=== PATIENT | male | born 1985 | race Two or more races ===

== ENCOUNTER 2025-02-06 10:23 | Outpatient (OUT) | payer OTHER, SELFPAY ==
--- OUTSIDE RECORDS SUMMARY | 2025-02-06 10:33 | XMS_ITS | Clinical Summary ---
Author Organization [facility] Address [address] [place] [address] Care Team Providers Care Commercial Lease Administrator Name Role Phone Gary Edwards MD Primary Care Provider [phone] Allergies Active AllergyReactionsCriticalityNoted DateCommentsCodeineHives,GI intolerance High01/15/2014Hydrocodone-ZbglyapufqsllEvtolcd86/12/2025LatexHives,Rash,Unknown High02/22/2017PenicillinsHives,GI cupqcedcwdrXolr88/25/2014 Medications MedicationSigDispense QuantityRefillsLast FilledStart DateEnd DateStatus omeprazole (PriLOSEC) [address] capsule Take 40 mg by mouth in the morning. Take before meals. Do not crush or chew. Active atorvastatin (Lipitor) 20 MG tablet Take 20 mg by mouth DailyActive venlafaxine XR (Effexor XR) 150 MG 24 hr capsule Take 150 mg by mouth Daily Do not crush or chew.Active topiramate 50 MG tablet Take by mouthActive gabapentin (Neurontin) 300 MG capsule Take 300 mg by mouth in the morning and 300 mg in the evening and 300 mg before bedtime.Active calcitriol (Rocaltrol) 0.25 MCG capsule Take 0.25 mcg by mouth DailyActive fluticasone (Flonase) 50 MCG/ACT nasal spray Administer 1 spray into each nostril Daily Shake gently. Before first use, prime pump. After use, clean tip and replace cap.Active Social History Tobacco UseTypesPacks/DayYears UsedDateSmoking Tobacco: Every DayCigarettes Smokeless Tobacco: Never Tobacco Cessation:Ready to Q uit: Not Asked Alcohol UseStandard Drinks/WeekCommentsNot Currently0 (1 standard drink = 0.6 oz pure alcohol)Sex and Gender InformationValueDate RecordedSex Assigned at Not on fileLegal XpwLgdf6005/05/2022 7:32 PM EDTGender IdentityNot on fileSexual OrientationNot on file Last Filed Vital Signs Vital SignReadingTime TakenCommentsBlood Lnvxwrqe599/8907/13/2024 11:33 AM EDT Tmion602907/13/2024 11:33 AM EDTTemperature--Respiratory Rate--Oxygen Saturation-- Inhaled Oxygen Concentration--Nymoej40.9 kg (207 lb)07/13/2024 11:33 AM EDT Sgxwgb686.8 cm (5' 10 )07/13/2024 11:33 AM EDTBody Mass Index29.7007/13/2024 11:33 AM EDT Plan of Treatment Not on file Insurance Care Teams Team MemberRelationshipSpecialtyStart DateEnd Gary Edwards MD [address] [place] [address] PCP - GeneralFamily Medicine07/13/24
--- OUTSIDE RECORDS SUMMARY | 2025-02-06 10:33 | XMS_ITS | Clinical Summary ---
Author Organization [facility] Address [address] [place], [place] [id number] Care Team Providers Care Financial Services Professional Name Role Phone Bello Kimberlyramya Ruiz CNP Primary Care Provider [phone] Allergies Active AllergyReactionsCriticalityNoted SfhkSuolzfgtVwtqoptNacfcveyclh31/25/2014 Hydrocodone-OrzqrboyivesgGixsmwh72/12/9376HsjycEqcarFlyg04/02/2018Penicillins Cxtbfarqiiz67/25/2014 Medications MedicationSigDispense QuantityRefillsLast FilledStart DateEnd DateStatus ibuprofen (MOTRIN) 600 mg tablet Take 1 tablet by mouth every 6 hours as needed for Pain. 21 tablet Active acetaminophen (TYLENOL) 500 mg tablet Take 1 tablet by mouth every 8 hours as needed for Pain or Fever. 50 tablet Active albuterol HFA (PROVENTIL HFA, VENTOLIN HFA) 90 mcg/actuation inhaler Inhale 2 Puffs as instructed.Active cholecalciferol (VITAMIN D3) 1,000 unit tab tablet Take 1,000 Units by mouth.Active fexofenadine (ERNESTO) 180 mg tablet Take 180 mg by mouth.Active omeprazole (PRILOSEC) 20 mg capsule Take 20 mg by mouth.Active erythromycin (ROMYCIN) 5 mg/gram (0.5 %) ophthalmic ointment Use 1 application in both eyes daily at bedtime. 3.5 g 12/03/2022ctive venlafaxine ER (EFFEXOR XR) 150 mg 24 hr capsule 11/24/2022ctive topiramate (TOPAMAX) 50 mg tablet 11/24/2022ctive gabapentin (NEURONTIN) 300 mg capsule 11/24/2022ctive atorvastatin (LIPITOR) 20 mg tablet 11/24/2022ctive Active Problems ProblemNoted DateDiagnosed OkxpVadzxaufx08/09/2022Meibomian gland dysfunction (MGD) of upper and lower lids of both eyes05/11/2019Punctate keratitis, hlyiwxipg37/20/0978Vekpmi09/20/2020High cofqnvmgmnb85/20/2206Qdlrczy51/20/2020 Vitreous floaters of both eyes01/15/2015Blepharitis of both eyes01/15/2014 Resolved Problems ProblemNoted DateDiagnosed DateResolved DateLeft corneal /01/2022 12/03/2022Foreign body of conjunctiva, leftOther vitreous opacities - Both Eyes Family History Medical HistoryRelationCommentsNo Ocular DiseaseFatherNo Ocular DiseaseMother RelationStatusCommentsFatherMother Social History Tobacco UseTypesPacks/DayYears UsedDateSmoking Tobacco: NeverSmokeless Tobacco: NeverAlcohol UseStandard Drinks/WeekCommentsNo0 (1 standard drink = 0.6 oz pure alcohol)Area Deprivation IndexAnswerDate RecordedNational Score (1-100), lower number is lower ftht673912/07/2022State Score (1-10), lower number is lower risk7 12/07/2022ata from: https://www.neighborhoodatlas.medicine.[facility]/. Last address used for imruugbojna[address]12/07/2022Sex and Gender Information ValueDate RecordedSex Assigned at BirthNot on fileLegal OzuPxrv23/02/2012 8:27 AM ESTGender IdentityNot on fileSexual OrientationNot on file Last Filed Vital Signs Vital SignReadingTime TakenCommentsBlood Vgkfhbiz271/8408 5:41 PM EDT Fajdu7817 5:41 PM YYEKehywvhthvo73 ??C (98.6 ??F)09/24/2015 5:41 PM EDT Respiratory Siaj2093 5:41 PM EDTOxygen Wlethtwnke95%09/24/2015 5:41 PM EDTInhaled Oxygen Concentration--Sxpghq43.9 kg (185 lb)09/24/2015 1:09 PM EDT Scztmv536.8 cm (5' 10 )09/24/2015 1:09 PM EDTBody Mass Index26.54009/24/2015 1:09 PM EDT Plan of Treatment Health MaintenanceDue DateLast DoneCommentsHepatitis B Vaccine (2 of 3 - 3-dose series)/07/1999Anxiety Ekeiaupwy87/21/2005Depression Screening 2004HIV Ljsmxstpf30/21/2005Hepatitis C Idoyccqsy09/21/2005HPV Vaccine (1 - 3-dose SCDM series)2013Covid-19 Vaccine ( season)2024 Influenza Vaccine (#1), 12/19/2022, 12/12/2021, Additional history existsDTaP,Tdap,Td Vaccine (6 - Td or Tdap), 12/09/1993, 09/03/1992, Additional history existsLipid Pxhwmjugv88/24/2029 02/14/2024, 05/04/2021, 03/04/2020, Additional history exists Insurance [facility] Address: [address] [address] * Guarantor: Kike Posadas AAccount TypeRelation to PatientDate of BirthPhone Billing AddressWorkers YkpoCkqm71/21/[address] [address] Care Teams Team MemberRelationshipSpecialtyStart DateEnd Kimberly Monsalve, DUPLICATING MACHINE MECHANIC [address] [place] [address] PCP - GeneralInternal Medicine05/10/19
--- OUTSIDE RECORDS SUMMARY | 2025-02-06 10:34 | XMS_ITS | Clinical Summary ---
Author Organization [facility] Address [address] [place] [address] Care Team Providers Care Razor Grinder Name Role Phone Unavailable Primary Care Provider Unavailabl e Allergies Active AllergyReactionsCriticalityNoted NtnpDtvhrzbaCjsimzuEckwfKeed63/28/2016 VzkwyHgfwjNvsk90/20/3240XbvtxnyfrvpLwmjqBska25/28/2016 Medications MedicationSigDispense QuantityRefillsLast FilledStart DateEnd DateStatus gabapentin (NEURONTIN) 300 MG capsule Take 300 mg by mouth daily as needed .Active cyanocobalamin (B-12) 1000 MCG tablet Take 1,000 mcg by mouth daily.Active fexofenadine (ERNESTO) 180 MG tablet Take 180 mg by mouth daily as needed .Active VENTOLIN HFA 90 mcg/actuation inhaler Inhale 2 puffs every 4 (four) hours as needed for wheezing or shortness of breath .Active omeprazole (PRILOSEC) 40 MG capsule Take 40 mg by mouth daily.Active fluticasone (FLONASE ALLERGY RELIEF) 50 mcg/actuation nasal spray Instill 2 sprays into each nostril daily.Active cholecalciferol, vitamin D3, 1,000 unit tablet Take 1,000 Units by mouth daily .Active Active Problems ProblemNoted DateDiagnosed MmviDsqidexczd51/27/2018 Assessment & Plan (01/17/2018 10:10 AM EST): I'm concerned that he may have a PE but he states that he is not able to afford any tests today dueto having no insurance. I have advised him that PEs can be deadly and that if his symptoms worsen, he needs to go to the ED immediately. He verbalized understanding. Mild intermittent fyzbyx8801/17/2018 Assessment & Plan (01/17/2018 10:12 AM EST): His chest pain is pleuritic in nature and is not associated with nausea/vomiting; it does not radiate to his neck or arms - I do not believe it is cardiac related. His shortness of breath may be due to an exacerbation of his asthma, although he is not having much wheezing on today's exam. He statesthat he has had frequent exacerbations in the past, particularly frequent during the winter time. Prescribed him a steroid burst for 5 days and advised him to continue to use his ANDERS. I have ordered a CXR as well as a CT PA to rule out pulmonary emboli but he has made it clear that he won't be able to afford these tests at this time due to having no insurance. Referred to care management. I have also encouraged him to follow-up with us for management of his medical problems when he obtains insurance in 3 weeks. Allergic gxdyxaxc08/20/2018Bilateral hearing loss05/10/2017Chronic pain syndrome 05/10/2017GERD (gastroesophageal reflux disease)05/10/2017Shoulder pain 05/10/2017Vitamin D henpxidyhc95/20/2018Vitamin B weakxmdhqm32/20/2018Chest pain Assessment & Plan (09/23/2015 11:20 AM EDT): The patient appears to have noncardiac chest discomfort. His pain is clearly worse with palpation and inspiration. It has been constant and yet he has no significant EKG changes and his cardiac markers are negative. I would recommend evaluating him for noncardiac causes of his chest discomfort. Hyperlipidemia Assessment & Plan (09/23/2015 11:20 AM EDT): He has been on statin therapy in the past but stopped on his own. He states she is going to follow-up through your office to reestablish his care. Immunizations ImmunizationAdministration DatesNext DueInfluenza IIV3 ID [id number]/28/2016Tdap 09/30/2015 Family History Medical HistoryRelationCommentsHypertensionFatherCancerMaternal Grandfatherlung cancerCancerPaternal GrandfatherCancerPaternal GrandmotherRelationStatusComments FatherMaternal GrandfatherPaternal GrandfatherPaternal Grandmother Social History Tobacco UseTypesPacks/DayYears UsedDateSmoking Tobacco: FormerCigarettes0.238817 - 2016Smokeless Tobacco: CurrentAlcohol UseStandard Drinks/WeekCommentsNo0 (1 standard drink = 0.6 oz pure alcohol)Sex and Gender InformationValueDate RecordedSex Assigned at BirthNot on fileLegal KcgNyom7111/12/2014 12:38 AM EDT Gender IdentityNot on fileSexual OrientationNot on file Last Filed Vital Signs Vital SignReadingTime TakenCommentsBlood Qvlavmbg882/6001/17/2018 9:10 AM EST Hzybt234701/17/2018 9:10 AM NLMShzujoozubi94.7 ??C (98 ??F)01/17/2018 9:10 AM EST Respiratory Mnlf166603/19/2017 9:10 AM ESTOxygen Yejjedqfnw93%01/17/2018 9:10 AM ESTInhaled Oxygen Concentration--Eeebzw16.5 kg (186 lb 3.2 oz)01/17/2018 9:10 AM WVMUnapzf015.8 cm (5' 10 )01/17/2018 9:10 AM ESTBody Mass Index26.7201/17/2018 9:10 AM EST Plan of Treatment Health MaintenanceDue DateLast DoneCommentsWellness Visit1989Depression Screening/Follow-Up (PHQ-2/9)1998Varicella Vaccines (1 of 2 - 13+ 2-dose series)11/12/1999HIV Vzkznspxy76/21/2002Hepatitis C Xelsgnxli70/21/2005Hepatitis B Vaccines (1 of 3 - 19+ 3-dose series)2005HPV Vaccines (1 - 3-dose SCDM series)2013Lipid Panel09/15/COVID-19 Vaccine ( - season)2024Influenza Vaccine (#1)/08/2016 Tetanus/Diphtheria/Pertussis (2 - Td or Tdap)/10/2015Zoster Vaccines (1 of 2)2036RSV Vaccines (1 - 1-dose 75+ series)2061HIB VaccinesAged OutNo longer eligible based on patient's age to complete this topicHepatitis A VaccinesAged OutNo longer eligible based on patient's age to complete this topic IPV VaccinesAged OutNo longer eligible based on patient's age to complete this topicMeningococcal ACWY VaccineAged OutNo longer eligible based on patient's age to complete this topicMeningococcal B VaccineAged OutNo longer eligible based on patient's age to complete this topicPneumococcal VaccineAged OutNo longer eligible based on patient's age to complete this topicRotavirus VaccinesAged Out No longer eligible based on patient's age to complete this topic Procedures Procedure NamePriorityDate/TimeAssociated DiagnosisCommentsEXT LAB LIPID PANEL Xmhiwnh2909/16/2015 from Last 3 Months or Most Recently Relevant to Health Maintenance Results * External Lab Lipid Panel (09/16/2015)ComponentValueRef RangeTest Method Analysis TimePerformed AtPathologist TnweuvffiYildkbxmgbq016zp/dLTriglycerides 475mg/hXKCR34dm/dLLDL Calculatedmg/dLLDL Measuredmg/dLChol/HDL Ratio7.0ratio VLDL Cholesterolmg/dLNon HDL CholesterolSpecimen (Source)Anatomical Location / LateralityCollection Method / VolumeCollection TimeReceived TimeBlood 09/16/2015 Narrative Authorizing ProviderResult TypeResult StatusHistorical Provider ELLIOTT BLOOD ORDERABLESFinal Result from Last 3 Months or Most Recently Relevant to Health Maintenance
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
[2025-02-06 11:42] LABS: Uric Acid 6.2 mg/dL (3.5-7.2)
== END 2025-02-06 10:24 | disposition home or self-care (01) ==
LOC: LAB 10:30
PROVIDERS: PCP Nurse Practitioner Family; Visit Provider Nurse Practitioner Family
DX: M25.50 Pain in unspecified joint (principal); M54.9 Dorsalgia, unspecified
CPT/HCPCS: 36415; 72100; 84550; 86038; 86060; 86140; 86431